=== PATIENT | male | born 1935 | race Two or more races ===

== ENCOUNTER 2018-05-28 21:42 | Inpatient (IN) | payer MEDICARE, MEDICAID ==
[~2018-05-28] VITALS: Ht 172.7 cm; Wt 65.8 kg
--- NOTE | 2018-05-28 21:49 | Emergency Room Report ---
History of Present Illness General Chief Complaint: Chest Pain Source: Patient, Family Member, EMS Present Illness HPI Patient is an 83-year-old male brought in by EMS after reported increased chest discomfort and generalized weakness. Had reported prior history of bypass surgery. He had been staying at home. Patient was noted to be Irish- speaking. He was noted to be weak all over. Allergies: Coded Allergies: No Known Allergies (Verified , 04/28/08) Patient History Reviewed Nursing Documentation: PMH: Agreed; PSxH: Agreed Nursing Documentation-PMH Hx Cardiac Problems: Yes - Triple bypass 2018, high cholesterol Hx Cerebrovascular Accident: Yes Review of Systems All Other Systems: negative except mentioned in HPI Physical Exam Vital Signs Date Time Temp Pulse Resp B/P (MAP) Pulse Ox O2 Delivery O2 Flow Rate FiO2 05/28/18 21:38 97.8 64 20 134/76 99 Room Air 97.9 Sp02 EP Interpretation: reviewed, normal General Appearance: normal inspection, well appearing, no apparent distress, alert Head: atraumatic ENT: normal ENT inspection, hearing grossly normal, normal voice Neck: normal inspection, full range of motion, supple, no bony tend Respiratory: normal inspection, lungs clear, normal breath sounds, no respiratory distress, no retraction, no wheezing Cardiovascular #1: regular rate, rhythm, no edema Gastrointestinal: normal inspection, normal bowel sounds, non tender, soft, no guarding, no hernia Genitourinary: no CVA tenderness Musculoskeletal: normal inspection, back normal, normal range of motion Neurologic: normal inspection, alert Psychiatric: normal inspection, judgement/insight normal, mood/affect normal Skin: normal inspection, normal color, no rash Medical Decision Making Diagnostic Impression: Primary Impression: Chest pain Additional Impressions: ACS (acute coronary syndrome) Acute kidney injury Stented coronary artery ER Course The patient presented for chest pain.Differential diagnosis included but was not limited to acute coronary syndrome, pulmonary embolism, pneumonia, aortic dissection, shingles, pneumothorax, aortic dissection, esophageal rupture, pericarditis. Because of complexity of patient's case laboratory testing and imaging studies were ordered.The laboratory testing was notable for markedly elevated. BUN/creatinine Patient was noted to have a history of hypotension at home. Patient was given IV fluids. He was noted to have some evidence of T-wave inversion on EKG. The patient was discussed with the patient's extracorporeal technician Dr. Mayte Colin who agreed to admit the patient. Labs Test 05/28/18 21:54 White Blood Count 8.0 K/UL (4.8-10.8) Red Blood Count 4.34 M/UL (4.70-6.10) Hemoglobin 13.5 G/DL (14.2-18.0) Hematocrit 39.4 % (42.0-52.0) Mean Corpuscular Volume 91 FL (80-99) Mean Corpuscular Hemoglobin 31.2 PG (27.0-31.0) Mean Corpuscular Hemoglobin Concent 34.3 G/DL (32.0-36.0) Red Cell Distribution Width 12.3 % (11.6-14.8) Platelet Count 247 K/UL (150-450) Mean Platelet Volume 7.6 FL (6.5-10.1) Neutrophils (%) (Auto) 61.3 % (45.0-75.0) Lymphocytes (%) (Auto) 22.1 % (20.0-45.0) Monocytes (%) (Auto) 11.6 % (1.0-10.0) Eosinophils (%) (Auto) 3.8 % (0.0-3.0) Basophils (%) (Auto) 1.2 % (0.0-2.0) Sodium Level 135 MMOL/L (136-145) Potassium Level 5.4 MMOL/L (3.5-5.1) Chloride Level 100 MMOL/L (98-107) Carbon Dioxide Level 22 MMOL/L (21-32) Anion Gap 13 mmol/L (5-15) Blood Urea Nitrogen 94 mg/dL (7-18) Creatinine 5.3 MG/DL (0.55-1.30) Estimat Glomerular Filtration Rate mL/min (>60) Glucose Level 139 MG/DL (74-106) Calcium Level 9.6 MG/DL (8.5-10.1) Total Bilirubin 0.5 MG/DL (0.2-1.0) Aspartate Amino Transf (AST/SGOT) 26 U/L (15-37) Alanine Aminotransferase (ALT/SGPT) 21 U/L (12-78) Alkaline Phosphatase 87 U/L (46-116) Total Creatine Kinase 61 U/L (26-308) Creatine Kinase MB 0.8 NG/ML (0.0-3.6) Creatine Kinase MB Relative Index 1.3 Troponin I 0.000 ng/mL (0.000-0.056) Total Protein 8.6 G/DL (6.4-8.2) Albumin 3.8 G/DL (3.4-5.0) Globulin 4.8 g/dL Albumin/Globulin Ratio 0.8 (1.0-2.7) Last Vital Signs Date Time Temp Pulse Resp B/P (MAP) Pulse Ox O2 Delivery O2 Flow Rate FiO2 05/28/18 21:38 97.8 64 20 134/76 99 Room Air 97.9 Status: improved Disposition: ADMITTED INPATIENT Condition: Serious Dyllan Steele MD May 28, 2018 21:49
[2018-05-28 22:16] LABS: BASOPHILS % (AUTO) 1.2 % (0.0-2.0); EOSINOPHILS % (AUTO) 3.8 % (0.0-3.0); HEMATOCRIT 39.4 % (42.0-52.0); HEMOGLOBIN 13.5 G/DL (14.2-18.0); LYMPHOCYTES % (AUTO) 22.1 % (20.0-45.0); MEAN CORPUSCULAR VOLUME 91 FL (80-99); MONOCYTES % (AUTO) 11.6 % (1.0-10.0); NEUTROPHILS % (AUTO) 61.3 % (45.0-75.0); PLATELET COUNT 247 K/UL (150-450); RED BLOOD COUNT 4.34 M/UL (4.70-6.10); RED CELL DISTRIBUTION WIDTH 12.3 % (11.6-14.8)
[2018-05-28 22:31] LABS: ANION GAP 13 mmol/L (5-15); BLOOD UREA NITROGEN 94 mg/dL (7-18); CALCIUM 9.6 MG/DL (8.5-10.1); CARBON DIOXIDE 22 MMOL/L (21-32); CHLORIDE 100 MMOL/L (98-107); CREATININE 5.3 MG/DL (0.55-1.30); POTASSIUM 5.4 MMOL/L (3.5-5.1); SODIUM 135 MMOL/L (136-145)
[2018-05-28 22:45] LABS: ALANINE AMINOTRANSFERASE 21 U/L (12-78); ALBUMIN 3.8 G/DL (3.4-5.0); ALBUMIN/GLOBULIN RATIO 0.8 (1.0-2.7); ALKALINE PHOSPHATASE 87 U/L (46-116); ASPARTATE AMINO TRANSFERASE 26 U/L (15-37); BILIRUBIN,TOTAL 0.5 MG/DL (0.2-1.0); CKMB 0.8 NG/ML (0.0-3.6); CREATINE KINASE 61 U/L (26-308)
[2018-05-29] VITALS (7 sets, daily range): BP systolic 90–157; BP diastolic 48–70
[2018-05-29] MEDS: Metoprolol 25mg tab ORAL SCH ×3 (01:39→20:45)
[2018-05-29] MEDS ORDERED: ASPIRIN-LOW81 MG ORAL (02:39)
[2018-05-29] MEDS ORDERED: POTASSIUM CHLOR8 ME2 PO (02:39)
[2018-05-29] MEDS ORDERED: BRILINTA90 MG PO (02:39)
[2018-05-29] MEDS ORDERED: METOPROLOL TART25 MG ORAL (02:39)
[2018-05-29] MEDS ORDERED: ULORIC40 MG ORAL (02:39)
[2018-05-29] MEDS ORDERED: FUROSEMIDE40 MG/5 ML ORAL (02:39)
[2018-05-29] MEDS ORDERED: BENICAR5 MG ORAL (02:39)
[2018-05-29] MEDS: Aspirin Baby 81mg NG SCH (08:08)
[2018-05-29 08:27] LABS: ALANINE AMINOTRANSFERASE 18 U/L (12-78); ALBUMIN 3.5 G/DL (3.4-5.0); ALBUMIN/GLOBULIN RATIO 0.8 (1.0-2.7); ALKALINE PHOSPHATASE 84 U/L (46-116); ANION GAP 11 mmol/L (5-15); ASPARTATE AMINO TRANSFERASE 15 U/L (15-37); BILIRUBIN,TOTAL 0.4 MG/DL (0.2-1.0); BLOOD UREA NITROGEN 85 mg/dL (7-18); CALCIUM 8.9 MG/DL (8.5-10.1); CARBON DIOXIDE 21 MMOL/L (21-32); CHLORIDE 103 MMOL/L (98-107); CREATININE 4.5 MG/DL (0.55-1.30); POTASSIUM 4.5 MMOL/L (3.5-5.1); SODIUM 135 MMOL/L (136-145)
[2018-05-29] MEDS ORDERED: 1/2 NS 1000ml IV ONE (16:00)
[2018-05-29] MEDS ORDERED: Atorvastatin 20mg tab ORAL SCH (21:00)
--- NOTE | 2018-05-29 21:22 | Cardiology Progress Note ---
Assessment/Plan Assessment/Plan acute kidney injury, as a result of orthostatic hypotension improving will continue montior creatinine change Brilinta to Plavix, patient thinks that was result of Brilinta continue pLiavx and aspirin for 6 weeks IVF Subjective Subjective today this patient feels better, denies dyspnea or chest pain, wants to go home Objective Last 24 Hour Vital Signs Date Time Temp Pulse Resp B/P (MAP) Pulse Ox O2 Delivery O2 Flow Rate FiO2 05/29/18 20:45 54 103/65 05/29/18 20:00 97.3 71 16 103/65 100 Room Air 97.3 05/29/18 20:00 70 05/29/18 16:00 97.2 71 20 144/60 100 Room Air 97.2 05/29/18 16:00 68 05/29/18 12:00 66 05/29/18 12:00 98.3 75 20 96/48 100 Room Air 98.3 05/29/18 08:10 68 109/48 05/29/18 08:00 97.3 68 20 109/48 99 Room Air 97.3 05/29/18 08:00 58 05/29/18 04:00 67 05/29/18 04:00 97.0 75 20 90/50 99 Room Air 97.0 05/29/18 01:39 65 134/70 05/29/18 00:30 98.8 65 18 134/70 96 Room Air 98.8 05/29/18 00:30 97.8 20 134/76 99 Room Air 97.9 05/29/18 00:29 99.0 73 16 157/57 100 Room Air 99.0 05/28/18 22:14 64 20 Room Air 05/28/18 21:38 97.8 64 20 134/76 99 Room Air 97.9 General Appearance: moderate distress EENT: PERRL/EOMI Neck: JVD Rhythm: Afib Cardiovascular: systolic murmur Respiratory/Chest: other - midsternal scar Abdomen: soft Extremities: non-tender Neurologic: attending radiologist II-XII grossly normal Intake and Output 05/28/18 05/29/18 19:00 07:00 Intake Total 385 ml Balance 385 ml Intake Oral 0 ml IV Total 285 ml Other 100 ml # Voids 3 Laboratory Tests Test 05/28/18 21:54 05/29/18 07:21 05/29/18 15:50 White Blood Count 8.0 K/UL (4.8-10.8) Red Blood Count 4.34 M/UL (4.70-6.10) L Hemoglobin 13.5 G/DL (14.2-18.0) L Hematocrit 39.4 % (42.0-52.0) L Mean Corpuscular Volume 91 FL (80-99) Mean Corpuscular Hemoglobin 31.2 PG (27.0-31.0) H Mean Corpuscular Hemoglobin Concent 34.3 G/DL (32.0-36.0) Red Cell Distribution Width 12.3 % (11.6-14.8) Platelet Count 247 K/UL (150-450) Mean Platelet Volume 7.6 FL (6.5-10.1) Neutrophils (%) (Auto) 61.3 % (45.0-75.0) Lymphocytes (%) (Auto) 22.1 % (20.0-45.0) Monocytes (%) (Auto) 11.6 % (1.0-10.0) H Eosinophils (%) (Auto) 3.8 % (0.0-3.0) H Basophils (%) (Auto) 1.2 % (0.0-2.0) Sodium Level 135 MMOL/L (136-145) L 135 MMOL/L (136-145) L Potassium Level 5.4 MMOL/L (3.5-5.1) H 4.5 MMOL/L (3.5-5.1) Chloride Level 100 MMOL/L (98-107) 103 MMOL/L (98-107) Carbon Dioxide Level 22 MMOL/L (21-32) 21 MMOL/L (21-32) Anion Gap 13 mmol/L (5-15) 11 mmol/L (5-15) Blood Urea Nitrogen 94 mg/dL (7-18) H 85 mg/dL (7-18) H Creatinine 5.3 MG/DL (0.55-1.30) H 4.5 MG/DL (0.55-1.30) H Estimat Glomerular Filtration Rate mL/min (>60) mL/min (>60) Glucose Level 139 MG/DL (74-106) H 120 MG/DL (74-106) H Calcium Level 9.6 MG/DL (8.5-10.1) 8.9 MG/DL (8.5-10.1) Total Bilirubin 0.5 MG/DL (0.2-1.0) 0.4 MG/DL (0.2-1.0) Aspartate Amino Transf (AST/SGOT) 26 U/L (15-37) 15 U/L (15-37) Alanine Aminotransferase (ALT/SGPT) 21 U/L (12-78) 18 U/L (12-78) Alkaline Phosphatase 87 U/L (46-116) 84 U/L (46-116) Total Creatine Kinase 61 U/L (26-308) Creatine Kinase MB 0.8 NG/ML (0.0-3.6) Creatine Kinase MB Relative Index 1.3 Troponin I 0.000 ng/mL (0.000-0.056) 0.007 ng/mL (0.000-0.056) 0.000 ng/mL (0.000-0.056) Total Protein 8.6 G/DL (6.4-8.2) H 7.7 G/DL (6.4-8.2) Albumin 3.8 G/DL (3.4-5.0) 3.5 G/DL (3.4-5.0) Globulin 4.8 g/dL 4.2 g/dL Albumin/Globulin Ratio 0.8 (1.0-2.7) L 0.8 (1.0-2.7) L Mayte Roberson MD May 29, 2018 21:22
--- NOTE | 2018-05-29 23:45 | History and Physical Report ---
DATE OF ADMISSION: 05/28/2018 IDENTIFYING DATA: This is a 83-year-old gentleman. HISTORY OF PRESENT ILLNESS: The patient was brought by ambulance. In the morning, he passed out after his breakfast, took his medications, his blood pressure dropped and ambulance came. The blood pressure was about 60. So, the patient was brought to [facility] and he was hydrated. He turned out to have an acute renal failure. The patient is well known to me. He was recently admitted to [facility] 2 weeks ago with non-ST elevation NM. He underwent interventional stent placement in his graft to RCA and graft to circumflex. His ALICEA was patent. The patient also has congestive heart failure, severe pulmonary hypertension and severe mitral stenosis. He has bioprosthetic transcutaneously placed aortic valve. He also is in a permanent atrial fibrillation. PAST MEDICAL HISTORY: Also significant for hypertension and benign prostatic hypertrophy. MEDICATIONS: At home include metoprolol, he is taking Brilinta and aspirin. He is on atorvastatin and he is on furosemide and olmesartan. ALLERGIES: There is no reported allergies to medications. HABITS: He has a very remote history of smoking, but nothing recent. The patient also is not a drinker. SOCIAL HISTORY: He is independent and lives at home. REVIEW OF SYSTEMS: Significant for feeling bad, weak and his contributes that to Brilinta. He also used to have mild orthopnea prior to admission. PHYSICAL EXAMINATION: GENERAL: This is a very pleasant gentleman at the time I saw him. VITAL SIGNS: His blood pressure actually was 140/70, his heart rate was 60, oxygen saturation was normal, and temperature was normal. He did not appear to be in acute respiratory distress or any distress. HEENT: PERRLA. EOMI. NECK: Jugular venous pressure is very elevated up to 12 cm. He has brisk carotid upstrokes without bruit. LUNGS: He has few crackles at bases. HEART: Irregular with accented A2 and holosystolic murmur on the left sternal border. He has midsternal scar, which is well healed. ABDOMEN: Soft. Positive bowel sounds. No rebound. No guarding. EXTREMITIES: Lower extremity, distal pulses palpable, mild. LABORATORY AND DIAGNOSTIC DATA: His chest x-ray did not show an infiltrate. There was a pleural thickening and cardiomegaly and post sternotomy. His laboratory data revealed creatinine of 5.3, and BUN 94, potassium 5.4, sodium 135, and CK 1.3. Troponin is normal. White count was 8, hemoglobin 13.5, and platelets were 247. EKG shows atrial fibrillation with evidence of LVH and mild ST depression in lateral leads. IMPRESSION AND RECOMMENDATION: The patient suffered acute renal failure, most likely it was due to hypotension and now he is in acute renal failure. We are going to admit him and observe him carefully for possible complications of his condition. We are going to do renal ultrasound and that the plan was discussed with the and the patient in detail. Mayte Roberson M.D. DR: KISHORE JOB#: [id number] CC:
[2018-05-30] VITALS: BP 116/53
[2018-05-30 04:00] VITALS: BP 119/74
[2018-05-30 08:00] VITALS: BP 126/66
[2018-05-30 08:24] LABS: ALANINE AMINOTRANSFERASE 19 U/L (12-78); ALBUMIN 3.4 G/DL (3.4-5.0); ALBUMIN/GLOBULIN RATIO 0.9 (1.0-2.7); ALKALINE PHOSPHATASE 86 U/L (46-116); ANION GAP 7 mmol/L (5-15); ASPARTATE AMINO TRANSFERASE 16 U/L (15-37); BILIRUBIN,TOTAL 0.5 MG/DL (0.2-1.0); BLOOD UREA NITROGEN 61 mg/dL (7-18); CARBON DIOXIDE 23 MMOL/L (21-32); CHLORIDE 105 MMOL/L (98-107); CREATININE 3.2 MG/DL (0.55-1.30); POTASSIUM 4.9 MMOL/L (3.5-5.1); SODIUM 135 MMOL/L (136-145)
[2018-05-30 09:49] VITALS: BP 126/66
[2018-05-30] MEDS: Metoprolol 25mg tab ORAL SCH (09:49)
[2018-05-30] MEDS: Aspirin Baby 81mg NG SCH (09:49)
--- NOTE | 2018-05-30 10:31 | Physician Query ---
--------- THIS DOCUMENT IS A PERMANENT PART OF THE MEDICAL RECORD --------- PLEASE COMPLETE THE DOCUMENT BEFORE SIGNING Dear Dr. Roberson Date: 05/30/2018 Nurse Wound/CDS Name: Sreekanth Joseph Nurse Wound / CDS Phone # [phone] Exercise your independent professional judgment when responding to query. Question asked do not imply a particular answer is desired/expected Clinical Documentation States: H&P notes Acute renal failure due to Hypotension Clinical Findings Show: Creatinine levels: 05/28/2018: 5.3 05/29/2018: 4.5 05/30/2018: 3.2 Please Clarify the type of renal failure below: [] ARF w/ Tubular Necrosis [] ARF w/ Cortical Necrosis [] ARF w/ Medullary Necrosis [] Acute Renal Failure (unspecified) [] Other: Condition Present on Admission: [] Yes [] No []Clinically Undeterminable Please also document in your Progress Notes and/or Discharge Summary and indicate if the condition was present on admission. POLLOD
--- NOTE | 2018-05-30 12:39 | Diagnostic Imaging Report ---
Indication: Renal insufficiency Technique: US Renal Comp Comparison: None Findings: Right kidney measures 11 cm in length. Left kidney measures 11.6 cm in length. Multiple simple appearing cysts are noted bilaterally. No evidence of hydronephrosis or sonographically appreciable renal stone bilaterally. No renal echogenicity appears within normal limits. The bladder is decompressed. Within the bladder there is a echogenic shadowing structure which measures approximately 1.5 x 0.8 x 0.9 cm. The prostate is not enlarged, with a volume of 25 mL. IMPRESSION: * Echogenic shadowing structure in the bladder measuring up to 1.5 cm which may represent a bladder stone. Correlate clinically. Consider confirmation with CT or direct visualization. * Renal echogenicity appears within normal limits bilaterally. * No hydronephrosis or sonographically appreciable kidney stone bilaterally. * Simple appearing renal cysts.
--- NOTE | 2018-05-31 08:37 | Discharge Summary ---
Discharge Summary Discharge Summary _ DATE OF ADMISSION: 05/28/2018 DATE OF DISCHARGE: 05/30/2018 BRIEF HOSPITAL COURSE: Patient is an 83-year-old gentleman, who was brought to ED by ambulance after he passed out after he took his breakfast and his medications. His blood pressure dropped. On arrival by EMS, blood pressure was on systolic 60s. He was then brought to [facility] where on arrival blood pressure was 134/76. Patient was recently admitted to [facility] 2 weeks ago with non -ST elevated AL. He underwent interventional stent placement in his graft to RCA and graft to circumflex. His ALICEA was patent. He also has congestive heart failure, severe pulmonary hypertension, and severe mitral stenosis. He has bioprosthetic transcutaneously placed aortic valve. He also has permanent atrial fibrillation and is on Brillinta and aspirin.. He has history of hypertension and BPH. On evaluation at ED, blood work revealed creatinine of 5.3, BUN 94, potassium 5.4. Initial troponin was normal. There was no leukocytosis, hemoglobin was at 13, hematocrit 39, platelet was normal. He was admitted for evaluation of acute renal failure, secondary to hypotension. He was given IV hydration. He was given aspirin and Plavix. He was placed on metoprolol tartrate 25 mg every 12 hours and Lipitor 20 mg daily at bedtime. Renal ultrasound showed normal renal echogenicity, no hydronephrosis. Troponin was negative 4. Renal function improved. Brillinta to was changed to Plavix. Advised to continue Plavix and aspirin for 6 weeks. He was discharged home. FINAL DIAGNOSES: Acute renal failure due to orthostatic hypotension Recent non-ST elevated AL status post stenting Congestive heart failure with severe pulmonary hypertension Severe mitral stenosis Permanent atrial fibrillation Status post bioprosthetic aortic valve DISPOSITION: Patient was discharged home. DISCHARGE MEDICATIONS: DC Brillinta. Continue with aspirin and Plavix for 6 weeks. DISCHARGE INSTRUCTIONS: Follow up with PCP in a week. I have been assigned to dictate discharge summary on this account, and I was not involved in the patient's management. Ingris Cain NP May 31, 2018 08:37
--- NOTE | 2018-05-31 14:23 | Cardiology Report ---
APPROVED REPORT EKG Measurement Heart [id number] Atrial fibrillation Right bundle branch block Abnormal ECG
== END 2018-05-30 10:51 | disposition home or self-care (01) | DRG 684 ==
LOC: EDBD 21:42 → EMR 22:34 → 2E 22:37 → EDBEDREQ 22:51 → 2E 05-30 00:19
DX: N17.9 Acute kidney failure, unspecified (principal); I95.1 Orthostatic hypotension; I34.2 Nonrheumatic mitral (valve) stenosis; I50.9 Heart failure, unspecified; I11.0 Hypertensive heart disease with heart failure; I48.2 Chronic atrial fibrillation; N40.0 Benign prostatic hyperplasia without lower urinary tract symptoms; I27.20 Pulmonary hypertension, unspecified; Z87.891 Personal history of nicotine dependence; Z98.61 Coronary angioplasty status; Z95.2 Presence of prosthetic heart valve; Z79.82 Long term (current) use of aspirin
CPT/HCPCS: 36415; 76770; 80053; 82550; 82553; 84484; 85025; 87040; 93005; 96360; 96361; 99284